=== PATIENT | female | born 2005 | race Caucasian/White ===

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

== ENCOUNTER → 2023-06-16 | Outpatient (CLI) | payer OTHER | LOC: RAD 09:00 | DX: R07.81 Pleurodynia (principal) | CPT/HCPCS: Q9967 ==